=== PATIENT | male | born 1955 | race Hispanic/Latino ===

== ENCOUNTER 2019-01-26 17:34 | Inpatient (IN) | payer MEDICARE, MEDICAID ==
[2019-01-26 17:36] VITALS: BMI 22.8
--- NOTE | 2019-01-26 18:27 | ED PDOC ---
Arrival/HPI - General Chief Complaint: Syncope Time Seen by Provider: 01/26/19 17:37 Historian: Patient - History of Present Illness Narrative History of Present Illness (Text): 01/26/19 18:19 A 63 year old male, whose past medical history includes , presents to the emergency department s/p fall from a week ago. Patient reports he fell in his home last week and loss consciousness. Patient also notes experiencing persistent back pain, nausea, and palpitations.. Patient states he called Dr. Isbell today about symptoms who advised patient to come to emergency room and notes his assisted living center took xrays of his lumbar spine. Patient notes his father had a medical history of blackouts and passed from a brain tumor. Patient denies any fever, chills, shortness of breath, chest pain, diarrhea, vomiting, urinary symptoms, neck pain, headache, dizziness, or any other complaints. PMD: Dr. Isbell Time/Duration: 1 week Symptom Onset: Gradual Symptom Course: Unchanged Activities at Onset: Light Context: Home Past Medical History - Provider Review Nursing Documentation Reviewed: Yes Primary Care Provider: Harpal Isbell - Infectious Disease Hx of Infectious Diseases: None - Cardiac Hx Circulatory Problems: Yes (PVD) Hx MS: No Hx Peripheral Vascular Disease: Yes - Pulmonary Hx Sleep Apnea: No - Neurological HX Cerebrovascular Accident: No Hx Seizures: Yes (LAST SEIZURE 18 MONTHS AGO) Hx Transient Ischemic Attacks (TIA): No - HEENT Hx Glaucoma: Yes - Renal Hx Renal Disorder: No - Endocrine/Metabolic Hx Endocrine Disorders: No - Hematological/Oncological Hx Blood Transfusions: No Hx Cancer: No - Integumentary Hx Dermatological Disorder: No Other/Comment: 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 - Musculoskeletal/Rheumatological Hx Musculoskeletal Disorders: Yes (HEMARTHOROSIS) Hx Back Pain: Yes Hx Falls: Yes Hx Herniated Disk: Yes Hx Osteoarthritis: Yes Hx Unsteady Gait: Yes Other/Comment: Hemarthrosis ankle and footMuscular weakness - Gastrointestinal Hx Gastritis: Yes - Genitourinary/Gynecological Hx Genitourinary Disorders: Yes Hx Prostate Problems: Yes (BPH) Other/Comment: BPH - Psychiatric Hx Emotional Abuse: No Hx Physical Abuse: No Hx Substance Use: No - Surgical History Hx Amputation: Yes (ONE TOE LEFT FOOT) Hx Breast Biopsy: Yes Hx Mastectomy: Yes (LEFT BREAST) Other/Comment: BACK SURGERY/3 YEARS AGO - Anesthesia Hx Anesthesia: Yes Hx Anesthesia Reactions: No Hx Malignant Hyperthermia: No - Suicidal Assessment Feels Threatened In Home Enviroment: No Family/Social History - Physician Review Nursing Documentation Reviewed: Yes Family/Social History: No Known Family HX Smoking Status: Light Smoker < 10 Cigarettes Daily Hx Alcohol Use: No Hx Substance Use: No Allergies/Home Meds Allergies/Adverse Reactions: Allergies Seafood Adverse Reaction (Mild, Uncoded 01/26/19 17:41) ANAPHYLAXIS Home Medications: Home Meds Medication Instructions Recorded Confirmed Amino AC/Protein Hydr/Whey Pro 30 ml PO BID 09/27/14 11/23/17 [Prosource Plus 946 ml] Ammonium Lactate 12% [Amlactin] 237 ml TP 09/27/14 11/23/17 Dextran/Hypromellose [Artificial 1 dannielle OP BID 09/27/14 11/23/17 Tears 0.1%-0.3% 15 ml] Docusate Sodium [Colace] 100 mg PO HS 09/27/14 11/23/17 Ferrous Sulfate 325 mg PO DAILY 09/27/14 11/23/17 Lamotrigine [Lamictal] 200 mg PO Q12 09/27/14 11/23/17 Multivitamin with Minerals 1 tab PO DAILY 09/27/14 11/23/17 [Multi-Vitamin W/Minerals] Pregabalin [Lyrica] 100 mg PO Q12 09/27/14 11/23/17 Quetiapine Fumarate [Seroquel] 600 mg PO HS 09/27/14 11/23/17 Thiamine [B-1] 100 mg PO DAILY 09/27/14 11/23/17 Vitamin D 2,000 iu PO DAILY 09/27/14 11/23/17 Duloxetine HCl [Duloxetine] 60 mg PO DAILY 05/30/15 11/23/17 Cyclosporine [Restasis Multidose] 1 drop BOTHEYES Q12 10/05/17 11/23/17 Magnesium Citrate [Citrate of 10 oz PO TID 10/05/17 11/23/17 Magnesia] Review of Systems - Physician Review All systems were reviewed & negative as marked: Yes - Review of Systems Constitutional: absent: Fevers, Other (chills) Respiratory: absent: SOB Cardiovascular: Palpitations. absent: Chest Pain Gastrointestinal: Nausea. absent: Diarrhea, Vomiting Genitourinary Male: absent: Urinary Output Changes Musculoskeletal: Back Pain. absent: Neck Pain Neurological: absent: Headache, Dizziness Physical Exam Vital Signs Reviewed: Yes Vital Signs Temp Pulse Resp BP Pulse Ox 01/26/19 17:35 98.6 F 75 19 131/81 98 Temperature: Afebrile Blood Pressure: Normal Pulse: Regular Respiratory Rate: Normal Appearance: Positive for: Well-Appearing, Non-Toxic Pain Distress: None Mental Status: Positive for: Alert and Oriented X 3 - Systems Exam Head: Present: Atraumatic, Normocephalic Pupils: Present: PERRL Extroacular Muscles: Present: EOMI Conjunctiva: Present: Normal Respiratory/Chest: Present: Clear to Auscultation, Good Air Exchange. No: Respiratory Distress, Accessory Muscle Use Cardiovascular: Present: Regular Rate and Rhythm, Normal S1, S2. No: Murmurs Abdomen: No: Tenderness, Distention, Peritoneal Signs Back: Present: Midline Tenderness (tenderness to palpation of lumbar spine). No: Paraspinal Tenderness Upper Extremity: Present: Normal Inspection. No: Cyanosis, Edema Lower Extremity: Present: Normal Inspection. No: Edema Neurological: Present: GCS=15, CN II-XII Intact, Speech Normal Skin: Present: Warm, Dry, Normal Color. No: Rashes Psychiatric: Present: Alert, Oriented x 3, Normal Insight, Normal Concentration Medical Decision Making ED Course and Treatment: 01/26/19 18:22 Impression: 63 year old male presenting to the emergency room s/p fall. Plan: -- Head CT without contrast -- CMP -- CBC -- Toradol -- Reglan -- Reassess and disposition Prior Visits: Notes and results from previous visits were reviewed. Progress Notes: - RAD Interpretation Radiology Orders: 01/26/19 17:57 HEAD W/O CONTRAST [CT] Stat - Medication Orders Current Medication Orders: Discontinued Medications Ketorolac Tromethamine (Toradol) 60 mg IM STAT STA Stop: 01/26/19 17:47 Metoclopramide HCl (Reglan) 10 mg IVP STAT STA Stop: 01/26/19 17:58 - Scribe Statement The provider has reviewed the documentation as recorded by the Scribe Wanda Mcknight All medical record entries made by the Scribe were at my direction and personally dictated by me. I have reviewed the chart and agree that the record accurately reflects my personal performance of the history, physical exam, medical decision making, and the department course for this patient. I have also personally directed, reviewed, and agree with the discharge instructions and disposition. Disposition/Present on Arrival - Present on Arrival History of DVT/PE: No History of Uncontrolled Diabetes: No Urinary Catheter: No History of Decub. Ulcer: No History Surgical Site Infection Following: None - Disposition Forms: [place] (Burmese)
[2019-01-26 19:16] LABS: BASO # 0.03 K/mm3 (0.0-2.0); BASO % 0.6 % (0.0-3.0); EOS # 0.1 (0.0-0.7); EOS % 1.5 % (1.5-5.0); HEMOGLOBIN 13.6 g/dL (14.0-18.0); LYMPH # 2.4 (1.2-3.4); LYMPH % 44.8 % (22.0-35.0); MEAN CELL VOLUME 94.9 fl (80.0-105.0); MEAN CORPUSCULAR HEMOGLOBIN 32.8 pg (25.0-35.0); MEAN CORPUSCULAR HGB CONC 34.5 g/dl (31.0-37.0); MEAN PLATELET VOLUME 9.5 fl (7.0-11.0); MONO # 0.6 (0.1-0.6); MONO % 11.6 % (1.0-6.0); RBC 4.15 10^6/uL (3.5-6.1); WHITE BLOOD COUNT 5.3 10^3/uL (4.5-11.0)
[2019-01-26 19:25] LABS: ALB/GLOB RATIO 1.2 (1.1-1.8); ALBUMIN 3.6 g/dL (3.0-4.8); ALT/SGPT 29 U/L (7-56); AST/SGOT 36 U/L (17-59); BLOOD UREA NITROGEN 9 mg/dL (7-21); CALCIUM 9.6 mg/dL (8.4-10.5); GFR NON-AFRICAN AMERICAN > 60
[2019-01-26] MEDS ORDERED: Lidocaine 2% Jelly (30 ml) TOP ONE (23:13)
[2019-01-26] MEDS ORDERED: TraMADol/Apap 37.5/325 mg Tab PO STA (23:15)
[2019-01-27] MEDS: Morphine 2 mg/ml ISec IVP PRN ×3 (08:35→23:34)
--- NOTE | 2019-01-27 09:54 | RAD ---
Date of service: 01/27/2019 HISTORY: pat COMPARISON: 05/19/2015 TECHNIQUE: Chest PA and lateral views FINDINGS: LUNGS: No active pulmonary disease. PLEURA: No significant pleural effusion identified. No pneumothorax apparent. CARDIOVASCULAR: No aortic atherosclerotic calcification present. Normal cardiac size. No pulmonary vascular congestion. OSSEOUS STRUCTURES: No significant abnormalities. VISUALIZED UPPER ABDOMEN: Normal. OTHER FINDINGS: None. IMPRESSION: No active disease.
[2019-01-27 10:49] LABS: INR 1.1; PROTHROMBIN TIME 12.4 SECONDS (9.4-12.5)
--- NOTE | 2019-01-27 11:23 | CT ---
Date of service: 01/26/2019 PROCEDURE: CT HEAD WITHOUT CONTRAST. HISTORY: fall COMPARISON: 11/25/2017 TECHNIQUE: Axial computed tomography images were obtained through the head/brain without intravenous contrast. Radiation dose: Total exam DLP = 947.1 mGy-cm. This CT exam was performed using one or more of the following dose reduction techniques: Automated exposure control, adjustment of the mA and/or kV according to patient size, and/or use of iterative reconstruction technique. FINDINGS: HEMORRHAGE: No intracranial hemorrhage. BRAIN: No mass effect or edema. Chronic microvascular changes are seen in the periventricular white matter. There is mild atrophy. VENTRICLES: Unremarkable. No hydrocephalus. CALVARIUM: Unremarkable. PARANASAL SINUSES: Unremarkable as visualized. No significant inflammatory changes. MASTOID AIR CELLS: Unremarkable as visualized. No inflammatory changes. OTHER FINDINGS: The report concurs with the preliminary [facility] report IMPRESSION: No acute intracranial findings
--- NOTE | 2019-01-27 11:28 | CT ---
Date of service: 01/26/2019 PROCEDURE: CT Lumbar Spine without contrast HISTORY: s/p fall lower back pain w/ compression fx COMPARISON: None available. TECHNIQUE: Axial computed tomography images were obtained of the lumbar spine without the use of intravenous contrast. Coronal and sagittal reformatted images were created and reviewed. Radiation dose: Total exam DLP = 1693.43 mGy-cm. This CT exam was performed using one or more of the following dose reduction techniques: Automated exposure control, adjustment of the mA and/or kV according to patient size, and/or use of iterative reconstruction technique. FINDINGS: VERTEBRAE: There is an acute appearing compression fracture of L1 which extends through the entire vertebral body. There is no retropulsion. There is approximately a 40 percent loss of height. DISCS/SPINAL CANAL/NEURAL FORAMINA: L1-2: Unremarkable. L2-3: Moderate to large disc bulge. Mild stenosis L3-4: Fusion and laminectomy L4-5: Fusion and laminectomy L5-S1: Fusion and laminectomy PARASPINAL SOFT TISSUES: Unremarkable. OTHER FINDINGS: The report concurs with the preliminary [facility] report IMPRESSION: There is an acute appearing compression fracture of L1 which extends through the entire vertebral body. There is no retropulsion. There is approximately a 40 percent loss of height.
--- NOTE | 2019-01-27 11:57 | CON ---
DATE OF CONSULTATION: 01/27/2019 CHIEF COMPLAINT/HISTORY OF PRESENT ILLNESS: Mr. Arnett is a 63-year-old gentleman, who fell approximately 2 weeks ago. He is having new severe upper lumbar pain since that time. It is unresponsive to conservative management and analgesics. His past medical history is significant for two lumbar surgeries previously involving L3-L5. He has chronic low back pain. He denies any leg symptoms or weakness. He has no change in bowel or bladder habits. PAST MEDICAL HISTORY: His past medical history is significant for seizures and carcinoma in situ of the breast. Mr. Arnett had a CT scan of the lumbar spine on admission. This revealed the hardware and previous surgeries at L3-5. There is a compression fracture of L1, which was not present on imaging in 2017. On Physical examination, he is tender in the upper lumbar area. I have ordered a lumbar MRI without gadolinium. There will be artifact related to the previous surgery. However, hopefully, we will be able to evaluate L1 and see if edema is present. I discussed the kyphoplasty procedure with Mr. Arnett. He is amendable to proceeding. Darron Pan MD KYM
--- NOTE | 2019-01-27 12:17 | CP.PCM.PCO ---
Physician Communication Note - Physician Communication Note Physician Communication Note: pt for MRA and plan for kyphoplasty
--- NOTE | 2019-01-27 16:13 | HP ---
DATE OF EXAM: 01/27/2019 HISTORY OF PRESENT ILLNESS: I know him from the [facility] at [facility]. He is a 63-year-old white man who had a fall and since then, he has been having severe back pain, this happened last week. No loss of consciousness. He is experiencing severe back pain. I tried to get him to his neurosurgeon, I cannot get that arranged. Before I could find that, he was ended up in the [facility]. He severe intractable low back pain, he cannot walk. PAST MEDICAL HISTORY: Peripheral vascular disease, he had seizures in the past, glaucoma, carcinoma in-situ of breast, malignant neoplasm of nipple and areola of the breast, hemarthrosis, back pain, falls, herniated disc, osteoarthritis. He had surgery to his low back, unsteady gait, hemarthrosis ankle, foot, muscular weakness, gastritis, BPH. 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 He had breast biopsy, left breast mastectomy. He had back surgery 2 years ago. FAMILY HISTORY: Unknown family history. SOCIAL HISTORY: He still smokes cigarettes. No alcohol. No drugs. ALLERGIES: SEAFOOD. MEDICATIONS: He is on eyedrops, Colace, iron, Lamictal, multivitamins, Lyrica, Seroquel, vitamin D, vitamin B1, Prozac, Restasis, citrate of magnesia. REVIEW OF SYSTEMS: No acute vision or hearing changes. No chills. No fevers. No shortness of breath or cough. He does have palpitations, but no chest pain. No diarrhea or vomiting. He had little nauseousness. No problem with urinary issues. He has severe back pain, cannot walk. No neck pain. No headache. No dizziness. PHYSICAL EXAMINATION: VITAL SIGNS: He has 98.6 temperature, 75 pulse, 19 respiratory rate, 131/81 blood pressure, 98% O2 sat. GENERAL: Well-appearing, nontoxic, alert and oriented x3. HEENT: Head is atraumatic, normocephalic. Extraocular muscles are intact. Pupils equal and reactive to light. Throat is moist. NECK: Supple. HEART: Regular rate. Normal S1 and S2. LUNGS: Decreased breath sounds, but clear to auscultation. ABDOMEN: Soft, nontender, positive bowel sounds. No guarding. No rebound. No CVA tenderness. He has palpable tenderness of the lumbar spine. EXTREMITIES: No edema bilaterally. NEUROLOGIC: GCS is 15. Cranial nerves II-XII are grossly intact. Normal speech. SKIN: Warm and dry. No apparent rashes. Alert and oriented x3. He is in a lot of pain, very uncomfortable. DIAGNOSTIC DATA: He had multiple tests done in the ER. No active disease in the chest x-ray. He has a CAT scan of the head which showed no acute intracranial abnormality, chronic microangiopathy ischemic changes. He has a lumbar spine CAT scan, it shows a compression fracture L1 with 40% loss of vertebral height. No significant retropulsion. He had a previous laminectomy and diskectomy, L3-L4, L5-S1; posterior fusion, L3 through L5. He might need to have a kyphoplasty of his L1, I consulted Dr. Darron Pan to see if they could do that today. He is on pain medication. He is n.p.o. LABORATORY DATA: He has a 141 sodium, potassium 4.3, BUN 9, creatinine 0.9, GFR is greater than 60, sugar 71, calcium is 9.6, total bili is 0.6. AST is 36, ALT is 29, alk phos 109, total protein is 6.5, albumin is 3.6. White count 5.3, hemoglobin 13.6, hematocrit 39.4, platelets of 179. We will consult Interventional Radiology. He is currently inpatient. We will see if we get the kyphoplasty today. Harpal Isbell DO MTDD
--- NOTE | 2019-01-27 19:49 | CARD ---
APPROVED REPORT Date of service: 01/27/2019 EKG Measurement Heart [id number] <Conclusion> Normal sinus rhythm Possible Left atrial enlargement Borderline ECG
[2019-01-28] MEDS: Morphine 2 mg/ml ISec IVP PRN ×5 (03:26→21:35)
[2019-01-28 07:45] LABS: HEMOGLOBIN 13.5 g/dL (14.0-18.0); MEAN CELL VOLUME 94.3 fl (80.0-105.0); MEAN CORPUSCULAR HEMOGLOBIN 32.1 pg (25.0-35.0); MEAN PLATELET VOLUME 9.5 fl (7.0-11.0); RBC 4.21 10^6/uL (3.5-6.1); WHITE BLOOD COUNT 5.6 10^3/uL (4.5-11.0)
[2019-01-28] MEDS: Pantoprazole 40 mg EC Tab PO SCH (07:45)
[2019-01-28 08:12] LABS: ALB/GLOB RATIO 1.2 (1.1-1.8); ALBUMIN 3.2 g/dL (3.0-4.8); ALT/SGPT 32 U/L (7-56); AST/SGOT 36 U/L (17-59); BLOOD UREA NITROGEN 14 mg/dL (7-21); CALCIUM 8.8 mg/dL (8.4-10.5); GFR NON-AFRICAN AMERICAN > 60
--- NOTE | 2019-01-28 15:20 | PN ---
DATE: 01/28/2019 SUBJECTIVE: He is currently comfortable, it took a day or so to get him comfortable with pain medications. He has a fall and he has a compression fracture of L1, pretty severe with issues. He needs to go for kyphoplasty, I believe that will need to be done on Wednesday with Dr. Darron Pan I am told. He is on Colace, Lamictal, Lyrica, morphine, and Protonix. He is getting little bit better. PHYSICAL EXAMINATION: VITAL SIGNS: He has 98.1 temperature, 61 pulse, 123/78 blood pressure, 20 respiratory rate, 97% O2 sat on room air. HEENT: Head is atraumatic and normocephalic. HEART: Regular rate. LUNGS: Decreased breath sounds. ABDOMEN: Soft. EXTREMITIES: No edema. BACK: Severe low back pain. LABORATORY DATA: He has a 141 sodium, potassium 4.1, BUN is 14, creatinine 1, GFR is 60, sugar is 79. Calcium is 8.8, total bili is 0.4. AST is 36, ALT is 32, alk phos 119, total protein is 5.9, INR is 1.1. White count 5.6, 13.5 hemoglobin, 39.7 hematocrit, and 157 platelets. PLAN: He is going to get pain medications, checking his labs and continue to do well. I discussed at length with him and answered many questions, hopefully will do well. Harpal Isbell DO MTDErika
[2019-01-28] MEDS: Magnesium Hydroxide Susp 30 ml UD PO PRN (17:48)
[2019-01-29] MEDS: Magnesium Hydroxide Susp 30 ml UD PO PRN ×2 (00:33→20:11)
[2019-01-29] MEDS: Morphine 2 mg/ml ISec IVP PRN ×5 (00:33→20:11)
[2019-01-29 07:46] LABS: HEMOGLOBIN 13.4 g/dL (14.0-18.0); MEAN CORPUSCULAR HEMOGLOBIN 31.9 pg (25.0-35.0); MEAN CORPUSCULAR HGB CONC 33.9 g/dl (31.0-37.0); MEAN PLATELET VOLUME 9.6 fl (7.0-11.0); RBC 4.2 10^6/uL (3.5-6.1); RED CELL DISTRIBUTION WIDTH 13.9 % (11.5-14.5); WHITE BLOOD COUNT 5.6 10^3/uL (4.5-11.0)
[2019-01-29 07:55] LABS: ALB/GLOB RATIO 1.2 (1.1-1.8); ALBUMIN 3.2 g/dL (3.0-4.8); ALT/SGPT 34 U/L (7-56); AST/SGOT 33 U/L (17-59); BLOOD UREA NITROGEN 13 mg/dL (7-21); CALCIUM 8.9 mg/dL (8.4-10.5); GFR NON-AFRICAN AMERICAN > 60
[2019-01-29] MEDS: Pantoprazole 40 mg EC Tab PO SCH (08:28)
[2019-01-29] MEDS: POLYETHYLENE GLYCOL 3350 17 GM/Dose PACKET PO SCH (12:09)
--- NOTE | 2019-01-29 13:24 | MRI ---
Date of service: 01/28/2019 PROCEDURE: MR LUMBAR SPINE WITHOUT CONTRAST HISTORY: eval acute L1 fx-kypho. Prev L3-5 surgery x 2 COMPARISON: None available. TECHNIQUE: Multiecho multiplanar sequences were performed through the lumbar spine without the use of intravenous contrast. FINDINGS: Normal lumbar lordosis. There is an acute compression fracture of L1 with extensive marrow edema. There is no retropulsion Conus medullaris unremarkable at the level of L1 Paraspinal soft tissues are unremarkable. T12-L1: No disc herniation, spinal canal stenosis or neural foraminal narrowing. L1-2: No disc herniation, spinal canal stenosis or neural foraminal narrowing. L2-3: There is a disc bulge and degeneration at L2-3. There is moderate facet arthropathy. There is a mild degree of central stenosis L3-4: Previous fusion L4-5: Previous fusion L5-S1: Previous fusion OTHER FINDINGS: None. IMPRESSION: Acute compression fracture of L1 with extensive marrow edema.
--- NOTE | 2019-01-29 15:22 | PN ---
DATE: 01/29/2019 SUBJECTIVE: He has been having a rough 12 hours of constipation. I gave him a Fleet's enema last night but not much help. I will do him a soap water enema today. I am bumping up his Colace to three times a day. Again I gave him MiraLax 17 g daily, get GI to take a look at him. Other than that, he is in a lot of low back pain, that is why he is on morphine, that is why he has got constipated; for the compression fracture, hopefully Dr. Darron Pan can do a kyphoplasty tomorrow. Other than that, he is resting in bed. PHYSICAL EXAMINATION: VITAL SIGNS: He has 98.1 temperature, 64 pulse, 129/80 blood pressure, 18 respiratory rate, 94% O2 sat. HEENT: Head is atraumatic and normocephalic. HEART: Regular rate. LUNGS: Decreased breath sounds but clear. ABDOMEN: Soft and nontender. Positive bowel sounds, although he is having lot of rectal pain from constipation. EXTREMITIES: No edema. LABORATORY DATA: A 5.6 white count, 13.4 hemoglobin, 39.5 hematocrit, and 170 platelets. A 141 sodium, potassium 4.2, BUN 13, creatinine 0.8, GFR is greater than 60, sugar is 86, calcium 8.9, total bili is 0.5, AST is 32, ALT is 34, alk phos 118, total protein is 6. ASSESSMENT AND PLAN: Consult GI. He is being seen by Darron Pan, the interventional radiologist and hopefully he can have his kyphoplasty done tomorrow, Wednesday. Hopefully, his bowels would be working. He has intractable low back pain with inability to walk and severe constipation. Harpal Isbell DO
[2019-01-30 07:23] LABS: HEMOGLOBIN 13.9 g/dL (14.0-18.0); MEAN CORPUSCULAR HEMOGLOBIN 32.2 pg (25.0-35.0); MEAN CORPUSCULAR HGB CONC 34.2 g/dl (31.0-37.0); MEAN PLATELET VOLUME 9.6 fl (7.0-11.0); RBC 4.32 10^6/uL (3.5-6.1); RED CELL DISTRIBUTION WIDTH 13.8 % (11.5-14.5); WHITE BLOOD COUNT 6.7 10^3/uL (4.5-11.0)
[2019-01-30 07:33] LABS: ALB/GLOB RATIO 1.2 (1.1-1.8); ALBUMIN 3.5 g/dL (3.0-4.8); ALT/SGPT 30 U/L (7-56); AST/SGOT 34 U/L (17-59); BLOOD UREA NITROGEN 14 mg/dL (7-21); CALCIUM 9.1 mg/dL (8.4-10.5); GFR NON-AFRICAN AMERICAN > 60
[2019-01-30] MEDS: Pantoprazole 40 mg EC Tab PO SCH (08:00)
[2019-01-30] MEDS: Morphine 2 mg/ml ISec IVP PRN ×4 (08:56→21:30)
[2019-01-30] MEDS: POLYETHYLENE GLYCOL 3350 17 GM/Dose PACKET PO SCH (09:04)
--- NOTE | 2019-01-30 10:28 | PN ---
DATE: 01/30/2019 SUBJECTIVE: He has got severe L1 compression fracture. He had intractable low back pain. He had severe constipation, treated with multiple enemas and medications. I called in GI also to help and the MRI showed an acute compression fracture. He is on Colace, Lamictal, Lyrica, Milk of Magnesia, MiraLax, morphine and Protonix. PHYSICAL EXAMINATION: VITAL SIGNS: He has a 98.2 temperature, 68 pulse, 117/76 blood pressure, 18 respiratory rate, 96% sat on room air. GENERAL: He is feeling a lot better since he moved his bowels with multiple enemas last night. HEART: Regular rate. LUNGS: Decreased breath sounds. ABDOMEN: Soft. EXTREMITIES: No edema. BACK: Low back is tender. LABORATORY DATA: He has a 6.7 white count, 13.9 hemoglobin, 40.6 hematocrit, 184 platelets. Sodium 140, potassium 4.5, BUN 14, creatinine 0.8, GFR is greater than 60, sugar 94, calcium is 9.1, total bili is 0.6. AST is 34, ALT 30, alk phos 135, total protein 6.3. ASSESSMENT AND PLAN: He was in an intractable back pain and morphine is helping him. Waiting for Darron Pan to get a kyphoplasty organized, I am hoping for today. So, hopefully we will get that done today and get him back to [facility] for maybe physical therapy. The patient has intractable back pain from acute compression fracture and severe constipation. Harpal Isbell DO
[2019-01-30] MEDS ORDERED: Magnesium Citrate Oral SOL (300 ml) PO ONE (10:53)
[2019-01-30] MEDS ORDERED: Sodium Chloride 0.45% 1,000 ML IV SCH (18:00)
[2019-01-31] MEDS: Morphine 2 mg/ml ISec IVP PRN ×6 (01:03→22:33)
[2019-01-31] MEDS ORDERED: Lidocaine PF 2% (5 ml) Inj (For Cardiac Arrhy) ONE (07:31)
[2019-01-31] MEDS ORDERED: Iodixanol 320 MG/ML 100 ML BOTTLE IV ONE (07:31)
[2019-01-31 07:35] LABS: HEMOGLOBIN 13.9 g/dL (14.0-18.0); MEAN CELL VOLUME 94.4 fl (80.0-105.0); MEAN CORPUSCULAR HEMOGLOBIN 32.6 pg (25.0-35.0); MEAN CORPUSCULAR HGB CONC 34.5 g/dl (31.0-37.0); MEAN PLATELET VOLUME 9.9 fl (7.0-11.0); RBC 4.27 10^6/uL (3.5-6.1); RED CELL DISTRIBUTION WIDTH 14.1 % (11.5-14.5); WHITE BLOOD COUNT 5.9 10^3/uL (4.5-11.0)
[2019-01-31 07:54] LABS: ALB/GLOB RATIO 1.2 (1.1-1.8); ALBUMIN 3.4 g/dL (3.0-4.8); ALT/SGPT 38 U/L (7-56); AST/SGOT 39 U/L (17-59); BLOOD UREA NITROGEN 12 mg/dL (7-21); CALCIUM 9.1 mg/dL (8.4-10.5); GFR NON-AFRICAN AMERICAN > 60
[2019-01-31] MEDS ORDERED: Midazolam 2 MG/2 ML VIAL ONE ×3 (08:18→08:46)
[2019-01-31] MEDS: Pantoprazole 40 mg EC Tab PO SCH (08:30)
[2019-01-31] MEDS ORDERED: DiphenhydrAMINE 50 mg/ml Inj ONE (08:58)
[2019-01-31] MEDS: POLYETHYLENE GLYCOL 3350 17 GM/Dose PACKET PO SCH (11:24)
--- NOTE | 2019-01-31 13:20 | CP.PCM.CON ---
<Ngozi Rogers - Last Filed: 01/31/19 13:21> History of Present Illness - History of Present Illness History of Present Illness: Gastroenterology Fellow/PGY6 Consult Note 63 year old male with PMH of carcinoma in situ of the breast, PVD, seizures, and back pain s/p spinal fusion presenting with back pain status post fall. Patient notes persistent back pain after a fall a week prior to presentation. Active treatment of L1 compression fracture with marrow edema on imaging. GI consultation for constipation. Patient admits to small caliber hard stools despite enemas, Colace, and Miralax received over the last two days. Admits to constipation for the last 2-3 months with small caliber, hard stools and associated intermittent straining. Associated bloating. No prior laxative use. Denies abdominal pain, unintentional weight loss, nausea, vomiting, diarrhea, or abdominal distension. 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 Prior colonoscopy 11/2017 showed 3mm ascending tubular adenoma, diverticulosis, and internal/external hemorrhoids with good b owel prep. Family History- denies stomach cancer, colon cancer Social History- denies tobacco, alcohol, illicit drug use Surgical History- lumbar laminectomy, bunion removals, toe contracture fixations Review of Systems - Review of Systems Review of Systems: 12-point review of systems negative except for as above Past Patient History - Infectious Disease Hx of Infectious Diseases: None - Past Medical History & Family History Past Medical History?: Yes - Past Social History Smoking Status: Light Smoker < 10 Cigarettes Daily - CARDIAC Hx Circulatory Problems: Yes (PVD) Hx Peripheral Vascular Disease: Yes - PULMONARY Hx Sleep Apnea: No - NEUROLOGICAL HX Cerebrovascular Accident: No Hx Seizures: Yes (LAST SEIZURE 18 MONTHS AGO) Hx Transient Ischemic Attacks (TIA): No - HEENT Hx Glaucoma: Yes - RENAL Hx Chronic Kidney Disease: No - ENDOCRINE/METABOLIC Hx Endocrine Disorders: No - HEMATOLOGICAL/ONCOLOGICAL Hx Blood Transfusions: No Hx Blood Transfusion Reaction: No - INTEGUMENTARY Hx Dermatological Problems: No Other/Comment: 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 - MUSCULOSKELETAL/RHEUMATOLOGICAL Hx Musculoskeletal Disorders: Yes (HEMARTHOROSIS) Hx Back Pain: Yes Hx Falls: Yes Hx Herniated Disk: Yes Hx Osteoarthritis: Yes Hx Unsteady Gait: Yes Other/Comment: Hemarthrosis ankle and footMuscular weakness - GASTROINTESTINAL Hx Gastrointestinal Disorders: Yes Other/Comment: ulcerative colitis - GENITOURINARY/GYNECOLOGICAL Hx Genitourinary Disorders: Yes Hx Prostate Problems: Yes (BPH) Other/Comment: BPH - PSYCHIATRIC Hx Emotional Abuse: No Hx Physical Abuse: No - SURGICAL HISTORY Hx Surgeries: Yes - ANESTHESIA Hx Anesthesia Reactions: No Hx Malignant Hyperthermia: No Meds Allergies/Adverse Reactions: Allergies Allergy/AdvReac Type Severity Reaction Status Date / Time Seafood AdvReac Mild ANAPHYLAXIS Uncoded 01/26/19 17:41 - Medications Medications: Current Medications Docusate Sodium (Colace) 100 mg PO TID [facility] Last Admin: 01/31/19 09:30 Dose: Not Given Sodium Chloride (Sodium Chloride 0.45%) 1,000 mls @ 80 mls/hr IV .[id number] [facility] Stop: 01/31/19 16:00 Last Admin: 01/30/19 17:54 Dose: 80 mls/hr Lamotrigine (Lamictal) 200 mg PO Q12 [facility] Last Admin: 01/31/19 11:23 Dose: 200 mg Magnesium Hydroxide (Milk Of Magnesia) 30 ml PO Q6H PRN PRN Reason: Constipation Last Admin: 01/29/19 20:11 Dose: 30 ml Morphine Sulfate (Morphine) 2 mg IVP Q3H PRN PRN Reason: Pain, severe (8-10) Last Admin: 01/31/19 11:23 Dose: 2 mg Ondansetron HCl (Zofran Inj) 4 mg IVP Q6H PRN PRN Reason: Nausea/Vomiting Pantoprazole Sodium (Protonix Ec Tab) 40 mg PO ACB [facility] Last Admin: 01/30/19 08:00 Dose: 40 mg Polyethylene Glycol (Miralax) 17 gm PO DAILY [facility] Last Admin: 01/31/19 11:24 Dose: Not Given Pregabalin (Lyrica) 100 mg PO Q12 [facility] Last Admin: 01/31/19 11:23 Dose: 100 mg Physical Exam - Constitutional Appears: Non-toxic, No Acute Distress - Head Exam Head Exam: ATRAUMATIC, NORMOCEPHALIC - Eye Exam Eye Exam: EOMI, PERRL. absent: Scleral icterus Pupil Exam: PERRL. absent: Miosis, Mydriatic - ENT Exam ENT Exam: Mucous Membranes Moist, Normal Oropharynx - Neck Exam Neck exam: Positive for: Full Rom, Normal Inspection - Respiratory Exam Respiratory Exam: Clear to Auscultation Bilateral. absent: Rales, Rhonchi, Wheezes - Cardiovascular Exam Cardiovascular Exam: RRR, +S1, +S2. absent: Gallop, Rubs - GI/Abdominal Exam GI & Abdominal Exam: Normal Bowel Sounds, Soft. absent: Distended, Firm, Guarding, Organomegaly, Rebound, Rigid, Tenderness - Extremities Exam Extremities exam: Positive for: normal inspection. Negative for: pedal edema - Neurological Exam Neurological exam: Alert - Psychiatric Exam Psychiatric exam: Normal Affect, Normal Mood - Skin Skin Exam: Dry, Intact, Normal Color, Warm Results - Vital Signs Recent Vital Signs: Last Vital Signs Temp 98 F 01/31/19 10:05 Pulse 58 L 01/31/19 10:05 Resp 12 01/31/19 10:05 BP 128/90 01/31/19 10:05 Pulse Ox 99 01/31/19 10:05 - Labs Result Diagrams: 01/31/19 07:20 01/31/19 07:20 Labs: Laboratory Results - last 24 hr 01/31/19 01/31/19 07:20 07:20 WBC 5.9 RBC 4.27 Hgb 13.9 L Hct 40.3 L MCV 94.4 MCH 32.6 MCHC 34.5 RDW 14.1 Plt Count 197 MPV 9.9 Sodium 139 Potassium 3.9 Chloride 105 Carbon Dioxide 29 Anion Gap 9 L BUN 12 Creatinine 0.9 Est GFR ( Amer) > 60 Est GFR (Non-Af Amer) > 60 Random Glucose 94 Calcium 9.1 Total Bilirubin 0.5 AST 39 ALT 38 Alkaline Phosphatase 143 H Total Protein 6.2 Albumin 3.4 Globulin 2.7 Albumin/Globulin Ratio 1.2 Assessment & Plan - Assessment and Plan (Free Text) Assessment: 63 year old male with PMH of carcinoma in situ of the breast, PVD, seizures, and back pain s/p spinal fusion presenting with back pain status post fall. Active treatment of L1 compression fracture with marrow edema on imaging. GI consultation for constipation. 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 Prior colonoscopy 11/2017 showed 3mm ascending tubular adenoma, diverticulosis, and internal/external hemorrhoids with good bowel prep. Plan: -received mag citrate on Wednesday01/31/19 -three large bowel movements overnight -continue Miralax daily -counselled on increased water and fiber intake -no indication for endoscopic evaluation <Vinny Estevez - Last Filed: 01/31/19 16:32> Meds - Medications Medications: Current Medications Docusate Sodium (Colace) 100 mg PO TID [facility] Last Admin: 01/31/19 14:56 Dose: 100 mg Lamotrigine (Lamictal) 200 mg PO Q12 [facility] Last Admin: 01/31/19 11:23 Dose: 200 mg Magnesium Hydroxide (Milk Of Magnesia) 30 ml PO Q6H PRN PRN Reason: Constipation Last Admin: 01/29/19 20:11 Dose: 30 ml Morphine Sulfate (Morphine) 2 mg IVP Q3H PRN PRN Reason: Pain, severe (8-10) Last Admin: 01/31/19 14:56 Dose: 2 mg Ondansetron HCl (Zofran Inj) 4 mg IVP Q6H PRN PRN Reason: Nausea/Vomiting Pantoprazole Sodium (Protonix Ec Tab) 40 mg PO ACB [facility] Last Admin: 01/30/19 08:00 Dose: 40 mg Polyethylene Glycol (Miralax) 17 gm PO DAILY [facility] Last Admin: 01/31/19 11:24 Dose: Not Given Pregabalin (Lyrica) 100 mg PO Q12 [facility] Last Admin: 01/31/19 11:23 Dose: 100 mg Results - Vital Signs Recent Vital Signs: Last Vital Signs Temp 97.9 F 01/31/19 14:00 Pulse 70 01/31/19 14:00 Resp 18 01/31/19 14:00 BP 112/77 01/31/19 14:00 Pulse Ox 98 01/31/19 14:00 - Labs Result Diagrams: 01/31/19 07:20 01/31/19 07:20 Labs: Laboratory Results - last 24 hr 01/31/19 01/31/19 07:20 07:20 WBC 5.9 RBC 4.27 Hgb 13.9 L Hct 40.3 L MCV 94.4 MCH 32.6 MCHC 34.5 RDW 14.1 Plt Count 197 MPV 9.9 Sodium 139 Potassium 3.9 Chloride 105 Carbon Dioxide 29 Anion Gap 9 L BUN 12 Creatinine 0.9 Est GFR ( Amer) > 60 Est GFR (Non-Af Amer) > 60 Random Glucose 94 Calcium 9.1 Total Bilirubin 0.5 AST 39 ALT 38 Alkaline Phosphatase 143 H Total Protein 6.2 Albumin 3.4 Globulin 2.7 Albumin/Globulin Ratio 1.2 Attending/Attestation - Attestation I have fully participated in the care of the patient.: Yes I have reviewed all pertinent clinical information: Yes Notes (Text): 01/31/19 16:30 PVD Seizure disorder Carcinoma in situ of breast Back pain, s/p spinal fusion Abdominal pain, constipation - Diet as tolerated - Encourage increased PO water and fiber intake to prevent recurrent constipation - Patient with large bowel movement following administration of magnesium citrate - Maintain bowel regimen to prevent constipation - Attempt to avoid narcotic pain medication as this can worsen existing constipation - No further planned GI intervention at this time, will sign off case. Please reconsult as necessary, thank you.
--- NOTE | 2019-01-31 14:16 | DS ---
He just had a kyphoplasty today. He is doing well. I was told by Dr. Darron Pan that he could be discharged, which is great. He will be going back to [facility]. Vital signs look good. Physical exam is good. He is in good spirits, and I will be discharging him later today after 4 o'clock to [facility] on his regular medications that he usually takes. He had a L1 acute compression fracture. Harpal Isbell DO
--- NOTE | 2019-01-31 17:56 | VASCULAR ---
PROCEDURE: 1. L1 kyphoplasty. 2. L1 vertebral body biopsy. HISTORY: Recent fall. Severe, refractory back pain. Unresponsive to bed rest and analgesics. Acute L1 compression fracture on MRI. Previous lower lumbar surgery x2 PHYSICIAN(S): Darron Pan MD. TECHNIQUE: he relative risks and indications of the procedure were explained to the patient and informed written consent obtained. The patient was placed prone on the arteriography table and the thoracolumbar spine prepped and draped in the usual sterile fashion. Conscious sedation and monitoring were provided throughout the procedure by a nurse. The L1 vertebral body was carefully localized with fluoroscopy. The skin and soft tissues were anesthetized with 1% Xylocaine. Under direct fluoroscopic guidance, bilateral transpedicular bone needles were placed into the posterior aspect of the L1 vertebral body. Through the right needle, a biopsy of the [id number] body was performed. The specimen was sent to histology. Next bilateral 15mm bone balloons were placed in the superior and anterior portion of the L1 vertebral body. They were inflated to approximately 3-4 cc apiece with dilute contrast. The balloons were removed and 6.0 cc of barium-impregnated PMMA cement instilled into the L1 vertebral body. No extravasation was seen. The bone needles were removed. The patient tolerated the procedure well. IMPRESSION: 1. Fluoroscopically-guided L1 kyphoplasty. 2. Fluoroscopic L1 vertebral body biopsy.
[2019-02-01] MEDS: Morphine 2 mg/ml ISec IVP PRN ×2 (06:09→13:02)
[2019-02-01 08:31] VITALS: BP 118/75; PULSE 64; RESP 20; TEMP 98.2; O2SAT 97
[2019-02-01] MEDS: Pantoprazole 40 mg EC Tab PO SCH (10:07)
[2019-02-01] MEDS: POLYETHYLENE GLYCOL 3350 17 GM/Dose PACKET PO SCH (10:07)
--- NOTE | 2019-02-01 22:00 | DS ---
HISTORY OF PRESENT ILLNESS: He had a kyphoplasty from a fall and L1 compression fracture status post Dr. Darron Pan kyphoplasty. He is comfortable. He is ready to go back there today. MEDICATIONS: He is on Colace, Lamictal, Lyrica, MiraLax. He will be off the morphine now. Protonix, Zofran, and all of his regular pain medications from [facility]. PHYSICAL EXAMINATION: VITAL SIGNS: He has a 98.2 temp, 64 pulse, 118/75 blood pressure, 20 respiratory rate and 97% O2 sat. HEENT: Head is atraumatic and normocephalic. HEART: Regular rate. LUNGS: Decreased breath sounds. ABDOMEN: Soft. EXTREMITIES: No edema. we will get Physical Therapy to walk him today. LABORATORY DATA: He has a 5.9 white count, 13.9 hemoglobin and 197 platelets. Sodium 139, potassium is 3.9, BUN is 12, creatinine 0.9, GFR is greater than 60, sugar is 94, calcium is 9.1, total bili is 0.5, AST is 39, ALT is 38, alk phos 143 and total protein is 6.2. PLAN: He should be discharged back to [facility] today. I am hoping he will do very well. He did have a very big constipation while he was here from all the pain medications. Hopefully that will not happen again on his regimen of Miralax, he has to be on that, he understands that. I will see him back at [facility]. Harpal Isbell DO
== END 2019-02-01 13:55 | DRG 479 ==
LOC: ED 17:34 → ERH 20:13 → 5RSO 21:47
PROVIDERS: ADMIT Family Medicine; ATTEND Family Medicine
PROC: 0QS03ZZ Reposition Lumbar Vertebra, Percutaneous Approach (ICD-10-PCS; principal; 2019-01-31)
PROC: 0QB03ZX Excision of Lumbar Vertebra, Percutaneous Approach, Diagnostic (ICD-10-PCS; 2019-01-31)
PROC: 0QU03JZ Supplement Lumbar Vertebra with Synthetic Substitute, Percutaneous Approach (ICD-10-PCS; 2019-01-31)
DX: S32.019A Unspecified fracture of first lumbar vertebra, initial encounter for closed fracture (principal); G89.29 Other chronic pain; I73.9 Peripheral vascular disease, unspecified; G40.909 Epilepsy, unspecified, not intractable, without status epilepticus; K59.03 Drug induced constipation; T40.2X5A Adverse effect of other opioids, initial encounter; N40.0 Benign prostatic hyperplasia without lower urinary tract symptoms; H40.9 Unspecified glaucoma; W19.XXXA Unspecified fall, initial encounter; Y92.009 Unspecified place in unspecified non-institutional (private) residence as the place of occurrence of the external cause; Z85.3 Personal history of malignant neoplasm of breast; Z90.12 Acquired absence of left breast and nipple; F17.210 Nicotine dependence, cigarettes, uncomplicated